=== PATIENT | female | born 1950 | race African-American/Black ===

== ENCOUNTER 2016-04-10 08:43 | Emergency (ER) | payer MEDICARE ==
[~2016-04-10] VITALS: Ht 165.1 cm; Wt 108.9 kg
[~2016-04-10 08:43] MED LIST: OXYC-323 PO
--- NOTE | 2016-04-10 09:22 | PHYS DOC ---
Past Medical History Past Medical History: Arthritis, Glaucoma, Hypertension, Other Additional Past Medical Histor: obesity Past Surgical History: Hip Replacement, Hysterectomy Additional Past Surgical Histo: left knee Alcohol Use: Occasionally Drug Use: None Adult General Chief Complaint Chief Complaint: HAND PROBLEM HPI HPI Patient is a 65 year old female with history of hypertension, arthritis, glaucoma who presents with mild bilateral hand pain and left elbow pain that has been going on intermittently for the last 3 days. Patient denies any known injury. She states she has history of arthritis, she states she has tried taking Aleve and muscle relaxer with no relief. Review of Systems Review of Systems Constitutional: Denies fever or chills [] Eyes: Denies change in visual acuity, redness, or eye pain [] HENT: Denies nasal congestion or sore throat [] Respiratory: Denies cough or shortness of breath [] Cardiovascular: No additional information not addressed in HPI [] GI: Denies abdominal pain, nausea, vomiting, bloody stools or diarrhea [] : Denies dysuria or hematuria [] Musculoskeletal: mild bilateral hand pain and left elbow pain Integument: Denies rash or skin lesions [] Neurologic: Denies headache, focal weakness or sensory changes [] Endocrine: Denies polyuria or polydipsia [] Current Medications Current Medications Current Medications Medications (Trade) Dose Ordered Sig/Concha Start Time Stop Time Status Last Admin Dose Admin Acetaminophen/ Hydrocodone Bitart (Lortab 5/325) 2 tab 1X ONCE 04/10/16 09:30 04/10/16 09:31 DC 04/10/16 09:52 2 TAB Prednisone (Prednisone) 60 mg 1X ONCE 04/10/16 09:30 04/10/16 09:31 DC 04/10/16 09:52 60 MG Allergies Allergies Allergies Coded Allergies Type Severity Reaction Last Updated Verified Sulfa (Sulfonamide Antibiotics) Allergy Intermediate rash 09/11/14 Yes Physical Exam Physical Exam Constitutional: Well developed, well nourished, no acute distress, non-toxic appearance. [] HENT: Normocephalic, atraumatic, bilateral external ears normal, oropharynx moist, no oral exudates, nose normal. [] Eyes: PERRLA, EOMI, conjunctiva normal, no discharge. [] Neck: Normal range of motion, no tenderness, supple, no stridor. [] Cardiovascular:Heart rate regular rhythm, no murmur [] Lungs & Thorax: Bilateral breath sounds clear to auscultation [] Abdomen: Bowel sounds normal, soft, no tenderness, no masses, no pulsatile masses. [] Skin: Warm, dry, no erythema, no rash. [] Back: No tenderness, no CVA tenderness. [] Extremities: Bilateral hands with no obvious edema and no obvious ecchymosis. Diffuse tenderness throughout bilateral hands and wrists mostly of the wrist joints. No scaphoid tenderness on bilateral wrists. Full range of motion to bilateral wrist and fingers. +2 bilateral radial pulse. Cap refill less than 2 seconds bilateral upper extremity. Adequate ulnar median radial sensation to bilateral upper extremities. Left elbow with no obvious deformity. Tenderness left elbow. Full range of motion to the left elbow. Adequate plantar flexion and dorsiflexion of the left forearm. Neurologic: Alert and oriented X 3, normal motor function, normal sensory function, no focal deficits noted. [] Psychologic: Affect normal, judgement normal, mood normal. [] Current Patient Data Vital Signs Vital Signs Date Time Temp Pulse Resp B/P Pulse Ox O2 Delivery O2 Flow Rate FiO2 04/10/16 09:00 98 72 18 220/98 98 Room Air 98.0 EKG EKG [] Radiology/Procedures Radiology/Procedures [] Course & Med Decision Making Course & Med Decision Making Pertinent Labs and Imaging studies reviewed. (See chart for details) Patient with history of arthritis presents today with bilateral hand and left elbow pain. No known injury. Bilateral hand and left elbow x-rays interpreted by radiologist as negative for any acute findings. Patient could have a flare up of arthritis. Encouraged her to continue taking Aleve twice a day, muscle relaxers, given a prescription for Medrol Dosepak and a very short supply of hydrocodone but recommended she follows up with her own PCP or orthopedic doctor in the next 7 days. She was provided return precautions and discharged in stable condition. Dragon Disclaimer Dragon Disclaimer This electronic medical record was generated, in whole or in part, using a voice recognition dictation system. Departure Departure Impression: Primary Impression: Arthritis Disposition: 01 HOME, SELF-CARE Condition: STABLE Referrals: FAN ALCALA (PCP) ANASTACIA GIORDANO MD See your doctor or orthopedic doctor in the next 7 days Patient Instructions: Arthritis, Degenerative-Brief Additional Instructions: You were seen for arthritis pain in your joints. Please continue taking anti inflammatories with food this week. Continue taking muscle relaxers and the medicines i wrote for you. Apply ice to the affected areas Scripts Hydrocodone/Apap 5-325 (Dupree 5-325 Tablet)1 Each Tablet1 Tab PO Q6HRS PRN PAIN #10 TAB Prov:PERCY LUJAN APRN 04/10/16 Methylprednisolone (Medrol)4 Mg Tab.ds.pk1 Pkg PO UD #1 PKG Prov:PERCY LUJAN APRN 04/10/16 PERCY LUJAN APRN Apr 10, 2016 09:22
[2016-04-10] MEDS ORDERED: PREDNISONE 20 MG TABLET PO ONE (09:30)
[2016-04-10] MEDS ORDERED: HYDROCODONE/APAP 5/325MG TABLET. PO ONE (09:30)
--- NOTE | 2016-04-10 10:08 | RAD ---
Three-view right hand study and 3 view left hand study Indications: Bilateral hand swelling and pain. Denies injury. Right hand: No acute fracture or dislocation or osteolytic process is seen. No significant arthritic change is evident. Left hand: No acute fracture or dislocation or osteolytic process is seen. No significant arthritic change is seen. IMPRESSION: No significant osseous abnormality is evident.
--- NOTE | 2016-04-10 10:10 | RAD ---
3 view left elbow study Indications: Patient woke up at 2:00 AM with left elbow pain. Denies injury. Findings: No joint effusion is seen. No acute fracture or dislocation or osteolytic process or significant arthritic change is evident. No significant soft tissue swelling of the olecranon bursa is evident. IMPRESSION: No acute fracture.
[2016-04-10] MEDS ORDERED: METH4TAB2 PO (10:33)
[2016-04-10] MEDS ORDERED: HYDR-971 PO (10:33)
[2016-04-10 10:36] VITALS: BP 173/83
== END 2016-04-10 10:42 | disposition home or self-care (01) ==
LOC: ER 08:43
DX: M13.842 Other specified arthritis, left hand (principal); M13.841 Other specified arthritis, right hand; M13.822 Other specified arthritis, left elbow; I10 Essential (primary) hypertension; H40.9 Unspecified glaucoma; E66.9 Obesity, unspecified; Z68.39 Body mass index [BMI] 39.0-39.9, adult; Z96.649 Presence of unspecified artificial hip joint; Z90.710 Acquired absence of both cervix and uterus; Z88.2 Allergy status to sulfonamides
CPT/HCPCS: 73080; 73130; 99284; J7512

== ENCOUNTER 2016-06-23 00:59 | Emergency (ER) | payer MEDICARE ==
[~2016-06-23] VITALS: Ht 162.6 cm; Wt 111.1 kg
[~2016-06-23 00:59] MED LIST changes: +HYDR-971 PO; +METH4TAB2 PO
[2016-06-23 02:31] VITALS: BP 209/86
[2016-06-23] MEDS ORDERED: HYDR-2666 PO (03:00)
[2016-06-23] MEDS ORDERED: HYDROMORPHONE 2 MG/ML VIAL. IM ONE (03:00)
--- NOTE | 2016-06-23 03:01 | PHYS DOC ---
Past Medical History Past Medical History: Arthritis, Glaucoma, Hypertension, Other Additional Past Medical Histor: obesity, carpal tunnel Past Surgical History: Hip Replacement, Hysterectomy Additional Past Surgical Histo: left knee Alcohol Use: Occasionally Drug Use: None Adult General Chief Complaint Chief Complaint: UPPER EXTREMITY PAIN HPI HPI 65-year-old female presenting to the emergency department today with left wrist pain and left elbow pain. She reports that she has this pain chronically which comes and goes over the past 2-3 years. Tonight it is worse. It is associated with mild swelling of her left wrist. She denies any recent trauma. She has a history of carpal tunnel syndrome and arthritis. she recently ran out of her pain medications. She denies chest pain or shortness of breath. Duration intermittent. Worse in the morning. Alleviated by opioids. Review of systems is negative for chest pain shortness of breath abdominal pain nausea vomiting fevers chills or diaphoresis. All other review of systems is negative unless otherwise noted in history of present illness. Review of Systems Review of Systems SEE ABOVE. Current Medications Current Medications Current Medications Medications (Trade) Dose Ordered Sig/Concha Start Time Stop Time Status Last Admin Dose Admin Hydromorphone HCl (Dilaudid) 0.5 mg 1X ONCE 06/23/16 03:00 06/23/16 03:01 DC 06/23/16 02:47 0.5 MG Allergies Allergies Allergies Coded Allergies Type Severity Reaction Last Updated Verified Sulfa (Sulfonamide Antibiotics) Allergy Intermediate rash 09/11/14 Yes Physical Exam Physical Exam Constitutional: Well developed, well nourished, no acute distress, non-toxic appearance. HENT: Normocephalic, atraumatic, bilateral external ears normal, oropharynx moist, no oral exudates, nose normal. [] Eyes: PERRLA, EOMI, conjunctiva normal, no discharge. Neck: Normal range of motion, no tenderness, supple, no stridor. [] Cardiovascular:Heart rate regular rhythm, no murmur [] Lungs & Thorax: Bilateral breath sounds clear to auscultation Abdomen: Bowel sounds normal, soft, no tenderness, no masses, no pulsatile masses. [] Skin: Warm, dry, no erythema, no rash. Back: No tenderness, no CVA tenderness. [] Extremities: The patient's left wrist is without ecchymosis lacerations or abrasions. No evidence of traumatic injury. Minimal tenderness to palpation with normal passive range of motion. Nontender elbow nontender shoulder proximally. Palpable pulse distally. 2 second cap refill present. The patient other extremities are nontender with normal range of motion. Neurologic: Alert and oriented X 3, normal motor function, normal sensory function, no focal deficits noted. [] Psychologic: Affect normal, judgement normal, mood normal. [] Current Patient Data Vital Signs Vital Signs Date Time Temp Pulse Resp B/P Pulse Ox O2 Delivery O2 Flow Rate FiO2 06/23/16 02:47 20 98 Room Air 06/23/16 02:31 74 209/86 06/23/16 01:20 98.2 98.2 EKG EKG [] Radiology/Procedures Radiology/Procedures [] Course & Med Decision Making Course & Med Decision Making Pertinent Labs and Imaging studies reviewed. (See chart for details) [] 65-year-old female presenting to the emergency department with left wrist pain that was acute on chronic. Vital signs showed significant hypertension. Patient did not demonstrate any evidence of end organ damage. She denied symptomatology that would require further investigation. She denies blurry vision oliguria, chest pain shortness of breath. She did not have pulmonary edema on pulmonary auscultation. No crackles present. The patient didn't have any trauma to her wrist. She reported is acute on chronic arthritis. She explained her chief desire was to help control her arthritis pain. She was given intramuscular hydromorphone and then subsequent discharged home with oral hydrocodone as needed for pain. She was to follow-up with her primary care doctor over the next 2-3 days for chronic wrist pain management. Dragon Disclaimer Dragon Disclaimer This electronic medical record was generated, in whole or in part, using a voice recognition dictation system. Departure Departure Impression: Primary Impression: Arthritis Disposition: HOME, SELF-CARE Condition: STABLE Referrals: FAN ALCALA (PCP) Patient Instructions: Wrist Pain Additional Instructions: Thank you for allowing us to participate in your care today. Followup with your primary care physician in 3 days if your symptoms do not improve. If you do not have a primary care provider you can ask for a list of our primary care providers. Return to the emergency department you have any new or concerning findings. This should be evaluated by the primary care physician and any necessary consulting services for continued management within a few days after discharge. Return to emergency room if you have any new or concerning symptoms including but not limited to fever, chills, nausea, vomiting, intractable pain, any new rashes, chest pain, shortness of air, uncontrolled bleeding, difficulty breathing, and/or vision loss. You may have been prescribed medication that can change in your level of thinking and ability to operate machinery. These medications include hydrocodone and Ativan. Also, Benadryl has been known to do this as well. Be sure to check with your pharmacist and ask if the medications you've prescribed can affect your level of consciousness. I recommend not operating heavy machinery or driving while on medication such as these. Scripts Hydrocodone Bit/Acetaminophen (Hydrocodone-Apap 5-325 )1 Each Tablet1 Tab PO PRN Q6HRS PRN PAIN #10 TAB Be careful as this medication may cause you to be drowsy or tired. Do not drive on this medication. Prov:MEHUL WELLS MD 06/23/16 MEHUL WELLS MD Jun 23, 2016 03:01
[2016-06-23] MEDS ORDERED: HYDROCODONE/APAP 5/325MG TABLET. ONE (03:56)
[2016-06-23] MEDS ORDERED: HYDROCODONE/APAP 5/325MG TABLET. PO ONE (04:00)
--- NOTE | 2016-06-23 06:35 | EKG ---
[facility] [address] [place] [address] Test Date: 2016-06-23 Test Time: 01:50:05 Pat Name: JOSELITO CORDOBA Department: Room: Gender: F [employer] Equipment [employer]: : 1950 Requested By: MEHUL WELLS Order Number: [id number] Reading MD: Amanda Carlin Measurements Intervals [place] Rate: 70 P: 18 VA: 206 QRS: -11 QRSD: 94 T: 12 QT: 400 QTc: 435 Interpretive Statements SINUS RHYTHM LEFT ATRIAL ABNORMALITY LEFTWARD AXIS RI6.01 Unconfirmed report No previous ECG available for comparison Electronically Signed On 06-24-2016 20:13:56 CDT by Amanda Carlin
== END 2016-06-23 04:02 | disposition home or self-care (01) ==
LOC: ER 00:59
DX: M19.032 Primary osteoarthritis, left wrist (principal); M19.022 Primary osteoarthritis, left elbow; I10 Essential (primary) hypertension; M19.90 Unspecified osteoarthritis, unspecified site; E66.9 Obesity, unspecified; Z68.41 Body mass index [BMI] 40.0-44.9, adult; Z90.710 Acquired absence of both cervix and uterus; Z88.2 Allergy status to sulfonamides
CPT/HCPCS: 93005; 96372; 99283; J1170

== ENCOUNTER → 2017-06-26 | Outpatient (CLI) | payer MEDICARE | END | disposition home or self-care (01) | LOC: KCIC 14:38 | DX: S83.191A Other subluxation of right knee, initial encounter (principal); S83.192A Other subluxation of left knee, initial encounter; M47.892 Other spondylosis, cervical region; M81.8 Other osteoporosis without current pathological fracture; X58.XXXA Exposure to other specified factors, initial encounter; Y93.89 Activity, other specified; Y92.89 Other specified places as the place of occurrence of the external cause; Y99.8 Other external cause status | CPT/HCPCS: 72020; 72170; 73120; 73565; 73620 ==

== ENCOUNTER → 2018-09-20 | Outpatient (CLI) | payer MEDICARE ==
[~2018-09-20] VITALS: Ht 160 cm; Wt 119.7 kg
[~2018-09-20] MED LIST changes: +HYDR-2761 PO; +HYDR-3164 PO; -HYDR-971 PO; +NORMAL SALINE IV ONE; -OXYC-323 PO; +OXYC1TAB15 PO; +SINCALIDE IV ONE
--- NOTE | 2018-09-20 08:02 | RAD ---
Right upper quadrant abdominal ultrasound, 09/20/2018: HISTORY: Epigastric pain The gallbladder is within normal limits in size. There is no sonographic evidence of cholelithiasis. The gallbladder newton are not thickened. The common hepatic duct is of normal caliber. There is no evidence of a hepatic mass. The visualized portions of the pancreas and right kidney show no abnormality. IMPRESSION: No significant abnormality is detected. Electronically signed by: Ramo Lara MD (09/20/2018 7:59 AM) [facility]
--- NOTE | 2018-09-20 10:01 | RAD ---
Radionuclide hepatobiliary scan with gallbladder ejection fraction, 09/20/2018: HISTORY: Abdominal pain and nausea Following IV injection of 5.5 mCi of technetium 99m Choletec there was prompt uptake of the radionuclide from the blood stream by the liver. Activity is present in the bile ducts and gallbladder at 10 minutes. Small bowel activity developed at 15 minutes. Additional imaging was then performed following IV injection of 2.4 mcg of cholecystokinin. There is good gallbladder emptying with the gallbladder ejection fraction calculated at 79 percent. IMPRESSION: 1. Normal radionuclide hepatobiliary scan. 2. The gallbladder ejection fraction is 79 percent. Electronically signed by: Ramo Lara MD (09/20/2018 9:59 AM) [facility]
== END | disposition home or self-care (01) ==
LOC: US 07:09
PROVIDERS: ATTEND Internal Medicine Gastroenterology
DX: R10.13 Epigastric pain (principal); R11.0 Nausea
CPT/HCPCS: 76705; 78227; A9537; J2805

== ENCOUNTER → 2021-04-12 | Outpatient (CLI) | payer MEDICARE ==
[~2021-04-12] MED LIST changes: -NORMAL SALINE IV ONE; -SINCALIDE IV ONE
--- NOTE | 2021-04-12 12:12 | RAD ---
HEPATOBILIARY SCAN WITH EJECTION FRACTION 04/12/2021 12:09 PM History: Reason: EPIGASTRIC PAIN COMPARISON STUDY: Hepatobiliary scan September 20, 2018 Procedure: Serial static images are obtained of the liver and biliary system in the frontal projectio n following IV administration of 5.5 mCi of Technetium 99m Choletec. After filling of the gallbladd er a fat-containing nutritional supplement was administered orally and dynamic imaging continued. The gallbladder ejection fraction was calculated. Findings: There is prompt hepatic clearance of tracer from the blood pool. There is homogeneous distr ibution throughout the liver. The gallbladder ejection fraction measures 56% (normal gallbladder EF is 35% or greater). IMPRESSION: 1. The cystic duct and common bile duct are patent. Negative for acute cholecystitis. 2. The gallbladder ejection fraction is normal Electronically signed by: Frandy Glynn MD (04/12/2021 12:10 PM) [id number]
--- NOTE | 2021-04-13 09:10 | RAD ---
Exam Date: 04/12/2021 7:46 AM US ABDOMEN COMPLETE Indication: Reason: EPIGASTRIC PAIN / Spl. Instructions: / History: . TECHNIQUE: Multiple longitudinal and transverse sonographic images of the abdomen are submitted for interpretation. FINDINGS: The liver is normal in size and echogenicity. The portal vein is patent, with hepatopetal flow. N o focal intrahepatic abnormality is seen. The gallbladder is normal, without gallstones, gallbladder wall thickening or pericholecystic fluid. There is no biliary ductal dilatation, with the common bile duct measuring 4 mm. The spleen is normal in size and echogenicity. The visualized abdominal aorta, inferior vena cava an d pancreas are within normal limits. There is no upper abdominal ascites. The kidneys are normal in appearance, with the right kidney measuring 10.9 cm and the left kidney measuring 10.5 cm. IMPRESSION: Normal abdominal ultrasound. Electronically signed by: Dwain Carrasco MD (04/13/2021 9:08 AM) [id number]
== END ==
LOC: US 07:48
PROVIDERS: ATTEND Internal Medicine Gastroenterology
DX: R10.13 Epigastric pain (principal)
CPT/HCPCS: 76700; 78227; A9537